=== PATIENT | female | born 1945 | race Caucasian/White ===

== ENCOUNTER 2019-05-03 | Emergency (ER) | payer MEDICARE ==
[~2019-05-03] MED LIST: CIPRO500 MG OR; CIPROFLOXACN500 MG PO; METRONIDAZOL500 MG PO; PYRIDIUM200 MG OR
[2019-05-03] MEDS ORDERED: EFFEXOR XR75 MG/CAP PO (19:46)
[2019-05-03] MEDS ORDERED: LORAZEPAM0.5 MG PO (19:46)
== END 2019-05-03 21:10 | disposition home or self-care (01) ==
DX: S02.2XXA Fracture of nasal bones, initial encounter for closed fracture (principal); W01.0XXA Fall on same level from slipping, tripping and stumbling without subsequent striking against object, initial encounter; Y92.480 Sidewalk as the place of occurrence of the external cause